=== PATIENT | male | born 1940 | race Two or more races ===

== ENCOUNTER 2024-07-20 23:33 | Inpatient (IN) | payer MEDICARE, OTHER ==
[~2024-07-20] VITALS: Ht 177.8 cm; Wt 77.1 kg
[2024-07-21 00:53] LABS: BASOPHILS % (AUTO) 0.2 % (0.0-2.0); EOSINOPHILS # (AUTO) 0.1 K/uL (0.0-0.7); EOSINOPHILS % (AUTO) 0.6 % (0.0-6.0); HEMATOCRIT 34 % (39-51); HEMOGLOBIN 11.4 g/dL (13.5-17.5); LYMPHOCYTES # (AUTO) 1.1 K/uL (0.8-4.8); LYMPHOCYTES % (AUTO) 11.6 % (20.0-44.0); MEAN CORPUSCULAR HEMOGLOBIN 29 PG (26.0-33.0); MEAN CORPUSCULAR HGB CONC 34 g/dl (31.0-36.0); MEAN CORPUSCULAR VOLUME 87 fL (80-96); MONOCYTES % (AUTO) 10.2 % (2.0-12.0); NEUTROPHILS # (AUTO) 7.6 K/uL (1.8-8.9); NEUTROPHILS % (AUTO) 77.4 % (43.0-81.0); PLATELET COUNT (AUTO) 237 K/uL (150-450); RED BLOOD CELL COUNT(AUTO) 3.88 MIL/uL (4.5-6.0); WHITE BLOOD COUNT (AUTO) 9.9 K/uL (4.3-11.0)
[2024-07-21 01:01] LABS: CALCIUM, SERUM 8.8 mg/dL (8.5-10.1); CARBON DIOXIDE 27 mmol/L (21-32); CHLORIDE 105 mmol/L (98-107); CREATININE 0.8 mg/dL (0.6-1.3); GLUCOSE 98 mg/dL (74-106); POTASSIUM 4.3 mmol/L (3.5-5.1); SODIUM SERUM 139 mmol/L (136-145); UREA NITROGEN, BLOOD 19 mg/dL (7-18)
[2024-07-21 01:07] LABS: ALANINE AMINOTRANSFERASE 24 U/L (12-78); ALBUMIN 3.6 g/dL (3.4-5.0); ALKALINE PHOSPHATASE 80 U/L (46-116); ASPARTATE AMINOTRANSFERASE 19 U/L (15-37); BILIRUBIN,TOTAL 0.3 mg/dL (0.2-1.0); TOTAL PROTEIN, SERUM 6.7 g/dL (6.4-8.2)
[2024-07-21] MEDS ORDERED: methylPREDNISolone SOD SUCC 125 MG/2ML VIAL ONE (05:25)
[2024-07-21] MEDS: methylPREDNISolone SOD SUCC 125 MG/2ML VIAL IV ONE (05:33)
[2024-07-21 05:59] VITALS: O2SAT 99
[2024-07-21] MEDS: ALBUTEROL FS 2.5 MG/3 ML VIAL.NEB NEB ONE (05:59)
[2024-07-21] MEDS ORDERED: ALBUTEROL FS 2.5 MG/3 ML VIAL.NEB ONE (06:03)
[2024-07-21] MEDS ORDERED: CEFTRIAXONE 1GM BAG (ER ONLY) 50 ML IV ONE (06:06)
[2024-07-21] MEDS: CEFTRIAXONE 1 G in IV D5W 50 ML IV ONE (06:10)
[2024-07-21 06:14] VITALS: O2SAT 99
[2024-07-21] MEDS ORDERED: ONDANSETRON HCL/PF 4 MG/2 ML VIAL IVP PRN (06:30)
[2024-07-21] MEDS ORDERED: Z GUARD REMEDY 4 OZ OINT TP PRN (06:30)
[2024-07-21] MEDS ORDERED: MAG HYDROX/AL HYDROX/SIMETH 30 ML UDC PO PRN (06:30)
[2024-07-21] MEDS ORDERED: MAGNESIUM HYDROXIDE 30 ML UDC PO PRN (06:30)
[2024-07-21 06:31] LABS: BASOPHILS % (AUTO) 0.1 % (0.0-2.0); EOSINOPHILS # (AUTO) 0.1 K/uL (0.0-0.7); EOSINOPHILS % (AUTO) 0.6 % (0.0-6.0); HEMATOCRIT 35 % (39-51); HEMOGLOBIN 11.8 g/dL (13.5-17.5); LYMPHOCYTES # (AUTO) 1.1 K/uL (0.8-4.8); LYMPHOCYTES % (AUTO) 10.3 % (20.0-44.0); MEAN CORPUSCULAR HEMOGLOBIN 30 PG (26.0-33.0); MEAN CORPUSCULAR HGB CONC 34 g/dl (31.0-36.0); MEAN CORPUSCULAR VOLUME 88 fL (80-96); MONOCYTES # (AUTO) 1.1 K/uL (0.1-1.30); MONOCYTES % (AUTO) 9.9 % (2.0-12.0); NEUTROPHILS # (AUTO) 8.4 K/uL (1.8-8.9); NEUTROPHILS % (AUTO) 79.1 % (43.0-81.0); PLATELET COUNT (AUTO) 244 K/uL (150-450); RED BLOOD CELL COUNT(AUTO) 3.97 MIL/uL (4.5-6.0); RED CELL DISTRIBUTION WIDTH 15.7 % (11.5-15.0); WHITE BLOOD COUNT (AUTO) 10.7 K/uL (4.3-11.0)
[2024-07-21 06:53] LABS: ABG OXYGEN SATURATION 92.4 % (94.0-98.0); ABG PCO2 39.9 mmHg (35.0-48.0); ABG PH 7.437 (7.350-7.450); ABG PO2 65.2 mmHg (83.0-108.0); ABG TOTAL HEMOGLOBIN 12.9 G/dL (13.5-17.5); COHb 0.3 % (0.5-1.5); MetHb 0.4 % (0.0-1.5); O2Hb 91.8 % (94.0-97.0); SITE, ABG RIGHT BRACHIAL
[2024-07-21 06:58] LABS: CALCIUM, SERUM 9.1 mg/dL (8.5-10.1); CARBON DIOXIDE 33 mmol/L (21-32); CHLORIDE 105 mmol/L (98-107); CREATININE 0.8 mg/dL (0.6-1.3); GLUCOSE 102 mg/dL (74-106); MAGNESIUM 1.9 mg/dL (1.8-2.4); NT-PRO BNP 379 pg/mL (0-125); PHOSPHORUS 3.8 mg/dL (2.5-4.9); POTASSIUM 4.7 mmol/L (3.5-5.1); SODIUM SERUM 141 mmol/L (136-145); UREA NITROGEN, BLOOD 18 mg/dL (7-18)
[2024-07-21] MEDS ORDERED: TRAM50TA2 PO (07:59)
[2024-07-21] MEDS ORDERED: MAGN400O6 PO (07:59)
[2024-07-21] MEDS ORDERED: ASCO500T10 PO (07:59)
[2024-07-21] MEDS ORDERED: BUDE10.2 IH (07:59)
[2024-07-21] MEDS ORDERED: DOCU100T2 PO (07:59)
[2024-07-21] MEDS ORDERED: ALBU2.5V38 IH (07:59)
[2024-07-21] MEDS ORDERED: SENN-18 PO (07:59)
[2024-07-21] MEDS ORDERED: TIOT18CA3 IH (07:59)
[2024-07-21] MEDS ORDERED: NA P133E RC (07:59)
[2024-07-21] MEDS ORDERED: BISA10SU11 RC (07:59)
[2024-07-21] MEDS ORDERED: ASPI-1420 PO (07:59)
[2024-07-21] MEDS ORDERED: ACET-2030 PO (07:59)
[2024-07-21] MEDS ORDERED: CLON0.1T PO (07:59)
[2024-07-21] MEDS ORDERED: AMLO5TAB4 PO (07:59)
[2024-07-21] MEDS ORDERED: CHOL100062 PO (07:59)
[2024-07-21] MEDS ORDERED: POLY17PO4 PO (07:59)
[2024-07-21] MEDS ORDERED: MULT-594 PO (07:59)
[2024-07-21] MEDS ORDERED: ALBU18HF2 IH (07:59)
[2024-07-21 08:05] VITALS: BP 144/70; TEMP 97.7; O2SAT 95
[2024-07-21] MEDS: PANTOPRAZOLE 40 MG TABLET.DR PO SCH (08:20)
[2024-07-21] MEDS ORDERED: BISACODYL SUPP (10 MG) 10 MG/SUPP.RECT SUPP.RECT RC PRN (11:30)
[2024-07-21 12:00] VITALS: BP 141/66; TEMP 97.6; O2SAT 96
[2024-07-21] MEDS: methylPREDNISolone SOD SUCC 40 MG/ML VIAL IV SCH (12:40)
[2024-07-21 16:00] VITALS: BP 151/87; TEMP 98.1; O2SAT 96
[2024-07-21 20:00] VITALS: BP 123/84; TEMP 97.7; O2SAT 97
[2024-07-21] MEDS: SENNOSIDES 8.6 MG TABLET PO SCH (21:43)
[2024-07-22] VITALS: BP 165/94; TEMP 97.3; O2SAT 96
[2024-07-22 04:00] VITALS: BP 151/77; TEMP 97.8; O2SAT 98
[2024-07-22] MEDS: CEFTRIAXONE 1 G in IV D5W 50 ML IV SCH (05:05)
[2024-07-22 07:04] LABS: BASOPHILS % (AUTO) 0.1 % (0.0-2.0); HEMATOCRIT 38 % (39-51); HEMOGLOBIN 12.8 g/dL (13.5-17.5); LYMPHOCYTES # (AUTO) 0.6 K/uL (0.8-4.8); LYMPHOCYTES % (AUTO) 7.4 % (20.0-44.0); MEAN CORPUSCULAR HEMOGLOBIN 29 PG (26.0-33.0); MEAN CORPUSCULAR HGB CONC 34 g/dl (31.0-36.0); MEAN CORPUSCULAR VOLUME 86 fL (80-96); MONOCYTES # (AUTO) 0.5 K/uL (0.1-1.30); MONOCYTES % (AUTO) 5.8 % (2.0-12.0); NEUTROPHILS # (AUTO) 7.2 K/uL (1.8-8.9); NEUTROPHILS % (AUTO) 86.7 % (43.0-81.0); PLATELET COUNT (AUTO) 248 K/uL (150-450); RED BLOOD CELL COUNT(AUTO) 4.43 MIL/uL (4.5-6.0); RED CELL DISTRIBUTION WIDTH 15.6 % (11.5-15.0); WHITE BLOOD COUNT (AUTO) 8.3 K/uL (4.3-11.0)
[2024-07-22 08:00] VITALS: BP 132/71; TEMP 97.5; O2SAT 98
[2024-07-22 08:02] LABS: CALCIUM, SERUM 9.4 mg/dL (8.5-10.1); CARBON DIOXIDE 25 mmol/L (21-32); CHLORIDE 102 mmol/L (98-107); CREATININE 0.6 mg/dL (0.6-1.3); GLUCOSE 131 mg/dL (74-106); POTASSIUM 4.1 mmol/L (3.5-5.1); SODIUM SERUM 137 mmol/L (136-145); UREA NITROGEN, BLOOD 16 mg/dL (7-18)
[2024-07-22] MEDS: ASPIRIN EC 81 MG TABLET.DR PO SCH (08:11)
[2024-07-22] MEDS: ASCORBIC ACID 500 MG TABLET PO SCH (08:11)
[2024-07-22] MEDS: AMLODIPINE BESYLATE 5 MG TABLET PO SCH (08:11)
[2024-07-22] MEDS: ACETAMINOPHEN 325 MG TABLET PO PRN (08:26)
[2024-07-22 12:00] VITALS: BP 124/63; TEMP 97.8; O2SAT 98
[2024-07-22 16:00] VITALS: BP 133/72; TEMP 97.8; O2SAT 98
[2024-07-22 20:00] VITALS: BP 141/75; TEMP 98.5; O2SAT 100
[2024-07-23] VITALS (8 sets, daily range): BP systolic 124–143; BP diastolic 56–82; TEMP 97.3–98.7; O2SAT 96–100
[2024-07-24] VITALS (8 sets, daily range): BP systolic 137–151; BP diastolic 64–77; TEMP 97.5–98.1; O2SAT 94–99
[2024-07-24] MEDS: ALBUTEROL FS 2.5 MG/3 ML VIAL.NEB NEB PRN (04:19)
[2024-07-24] MEDS ORDERED: AMOX-430 PO (09:50)
== END 2024-07-24 13:40 | DRG 191 ==
LOC: ER 23:56 → TELE1 07-21 07:25
PROVIDERS: ADMIT Internal Medicine; ATTEND Internal Medicine
DX: J44.1 Chronic obstructive pulmonary disease with (acute) exacerbation (principal); I50.32 Chronic diastolic (congestive) heart failure; S40.022A Contusion of left upper arm, initial encounter; W19.XXXA Unspecified fall, initial encounter; Y92.129 Unspecified place in nursing home as the place of occurrence of the external cause; I11.0 Hypertensive heart disease with heart failure; M19.90 Unspecified osteoarthritis, unspecified site; D63.8 Anemia in other chronic diseases classified elsewhere; Z87.891 Personal history of nicotine dependence
CPT/HCPCS: 36415; 70450-TC; 71045-TC; 73110; 73130-TC; 80048-TC; 80053-TC; 83735-TC; 83880; 84100-TC; 84484-TC; 85025-TC; 87040-TC; 94760-TC; 94762-TC; 94799-TC; 97112-TC; 97116-TC; 97530-TC; A4223; G0378; J0696; J2919; J7050; J7060

== ENCOUNTER 2024-08-31 09:15 | Inpatient (IN) | payer MEDICARE, OTHER ==
[~2024-08-31] VITALS: Ht 177.8 cm; Wt 61.2 kg
[~2024-08-31 09:15] MED LIST: ACET-2030 PO; ALBU18HF2 IH; ALBU2.5V38 IH; AMLO5TAB4 PO; AMOX-430 PO; ASCO500T10 PO; ASPI-1420 PO; BISA10SU11 RC; BUDE10.2 IH; CHOL100062 PO; CLON0.1T PO; DOCU100T2 PO; MAGN400O6 PO; MULT-594 PO; NA P133E RC; POLY17PO4 PO; SENN-18 PO; TIOT18CA3 IH; TRAM50TA2 PO
[2024-08-31] MEDS ORDERED: methylPREDNISolone SOD SUCC 125 MG/2ML VIAL ONE (09:28)
[2024-08-31] MEDS ORDERED: Magnesium 1GM/D5W 100ML PREMIX 200 ML IV ONE (09:28)
[2024-08-31] MEDS ORDERED: IPRATROPIUM NEB FS 0.5 MG/2.5 ML AMPUL.NEB ONE (09:38)
[2024-08-31] MEDS ORDERED: ALBUTEROL FS 2.5 MG/3 ML VIAL.NEB ONE (09:38)
[2024-08-31] MEDS ORDERED: FLUT1DIS3 IH (09:44)
[2024-08-31] MEDS ORDERED: ACET-868 PO (09:44)
[2024-08-31] MEDS: methylPREDNISolone SOD SUCC 125 MG/2ML VIAL IV ONE (09:47)
[2024-08-31] MEDS: Magnesium 1GM/D5W 100ML PREMIX 200 ML IV ONE (09:47)
[2024-08-31] MEDS: ALBUTEROL FS 2.5 MG/3 ML VIAL.NEB CONTNEB ONE (09:55)
[2024-08-31] MEDS: IPRATROPIUM NEB FS 0.5 MG/2.5 ML AMPUL.NEB NEB ONE (09:55)
[2024-08-31 09:56] VITALS: O2SAT 96
[2024-08-31 10:00] LABS: CALCIUM, SERUM 9.3 mg/dL (8.5-10.1); CARBON DIOXIDE 32 mmol/L (21-32); CHLORIDE 101 mmol/L (98-107); CREATININE 0.9 mg/dL (0.6-1.3); GLUCOSE 94 mg/dL (74-106); POTASSIUM 4.7 mmol/L (3.5-5.1); SODIUM SERUM 137 mmol/L (136-145); UREA NITROGEN, BLOOD 13 mg/dL (7-18)
[2024-08-31 10:08] LABS: BASOPHILS % (AUTO) 0.2 % (0.0-2.0); EOSINOPHILS # (AUTO) 0.1 K/uL (0.0-0.7); EOSINOPHILS % (AUTO) 1.1 % (0.0-6.0); HEMATOCRIT 40 % (39-51); HEMOGLOBIN 13.3 g/dL (13.5-17.5); LYMPHOCYTES # (AUTO) 1.5 K/uL (0.8-4.8); LYMPHOCYTES % (AUTO) 23.1 % (20.0-44.0); MEAN CORPUSCULAR HEMOGLOBIN 29 PG (26.0-33.0); MEAN CORPUSCULAR HGB CONC 33 g/dl (31.0-36.0); MEAN CORPUSCULAR VOLUME 88 fL (80-96); MONOCYTES # (AUTO) 0.7 K/uL (0.1-1.30); MONOCYTES % (AUTO) 10.4 % (2.0-12.0); NEUTROPHILS # (AUTO) 4.2 K/uL (1.8-8.9); NEUTROPHILS % (AUTO) 65.2 % (43.0-81.0); PLATELET COUNT (AUTO) 258 K/uL (150-450); RED BLOOD CELL COUNT(AUTO) 4.53 MIL/uL (4.5-6.0); RED CELL DISTRIBUTION WIDTH 14.7 % (11.5-15.0); WHITE BLOOD COUNT (AUTO) 6.4 K/uL (4.3-11.0)
[2024-08-31 10:17] LABS: ALANINE AMINOTRANSFERASE 19 U/L (12-78); ALKALINE PHOSPHATASE 76 U/L (46-116); ASPARTATE AMINOTRANSFERASE 20 U/L (15-37); BILIRUBIN,DIRECT 0.1 mg/dL (0.0-0.2); BILIRUBIN,TOTAL 0.4 mg/dL (0.2-1.0); NT-PRO BNP 227 pg/mL (0-125); TOTAL PROTEIN, SERUM 7.2 g/dL (6.4-8.2)
[2024-08-31 10:29] VITALS: O2SAT 100
[2024-08-31] MEDS ORDERED: MAGNESIUM HYDROXIDE 30 ML UDC PO PRN ×2 (11:00)
[2024-08-31] MEDS ORDERED: MAG HYDROX/AL HYDROX/SIMETH 30 ML UDC PO PRN (11:00)
[2024-08-31] MEDS ORDERED: Z GUARD REMEDY 4 OZ OINT TP PRN (11:00)
[2024-08-31] MEDS ORDERED: ONDANSETRON HCL/PF 4 MG/2 ML VIAL IVP PRN (11:00)
[2024-08-31 12:30] VITALS: BP 113/59; TEMP 97.3; O2SAT 95
[2024-08-31] MEDS: methylPREDNISolone SOD SUCC 125 MG/2ML VIAL IV SCH (14:50)
[2024-08-31] MEDS: ACETAMINOPHEN 325 MG TABLET PO PRN (14:51)
[2024-08-31] MEDS: FLUTICASONE/VILANTEROL 1 EACH BLST.W.DEV IH SCH (14:51)
[2024-08-31 16:00] VITALS: BP 140/74; TEMP 97.3; O2SAT 95
[2024-08-31] MEDS: DOCUSATE SODIUM 100 MG CAPSULE PO SCH (16:38)
[2024-08-31] MEDS ORDERED: Medication Not On Formulary EA (Budesonide/Formoterol Fumarate (Symbicort 160-4.5 Mcg In IH SCH (17:00)
[2024-08-31] MEDS: LEVOFLOXACIN 500 MG /D5W 100ML 500 MG in PREMIX 1 EA IV SCH (18:34)
[2024-08-31 20:15] VITALS: BP_SYST 101; BP_SYST 123; BP_DIAS 69; BP_DIAS 72; TEMP 97.5; TEMP 98.1; O2SAT 91; O2SAT 95
[2024-08-31] MEDS: TRAMADOL HCL 50 MG TABLET PO PRN (21:39)
[2024-08-31] MEDS: ENOXAPARIN SODIUM 40 MG/0.4 ML DISP.SYRIN SQ SCH (21:55)
[2024-09-01] VITALS (14 sets, daily range): BP systolic 129–159; BP diastolic 65–80; TEMP 97.5–98.2; O2SAT 95–99
[2024-09-01] MEDS: ALBUTEROL FS 2.5 MG/0.5 ML VIAL.NEB NEB PRN (02:27)
[2024-09-01] MEDS: IPRATROPIUM NEB FS 0.5 MG/2.5 ML AMPUL.NEB NEB PRN (02:27)
[2024-09-01 07:05] LABS: HEMATOCRIT 37 % (39-51); HEMOGLOBIN 12.6 g/dL (13.5-17.5); LYMPHOCYTES # (AUTO) 0.7 K/uL (0.8-4.8); LYMPHOCYTES % (AUTO) 7.1 % (20.0-44.0); MEAN CORPUSCULAR HEMOGLOBIN 30 PG (26.0-33.0); MEAN CORPUSCULAR HGB CONC 34 g/dl (31.0-36.0); MEAN CORPUSCULAR VOLUME 88 fL (80-96); MONOCYTES # (AUTO) 0.3 K/uL (0.1-1.30); MONOCYTES % (AUTO) 3.4 % (2.0-12.0); NEUTROPHILS # (AUTO) 8.4 K/uL (1.8-8.9); NEUTROPHILS % (AUTO) 89.5 % (43.0-81.0); PLATELET COUNT (AUTO) 236 K/uL (150-450); RED BLOOD CELL COUNT(AUTO) 4.26 MIL/uL (4.5-6.0); RED CELL DISTRIBUTION WIDTH 14.8 % (11.5-15.0); WHITE BLOOD COUNT (AUTO) 9.4 K/uL (4.3-11.0)
[2024-09-01 07:28] LABS: CALCIUM, SERUM 9.3 mg/dL (8.5-10.1); CARBON DIOXIDE 28 mmol/L (21-32); CHLORIDE 102 mmol/L (98-107); CREATININE 0.8 mg/dL (0.6-1.3); GLUCOSE 139 mg/dL (74-106); MAGNESIUM 1.9 mg/dL (1.8-2.4); PHOSPHORUS 3.6 mg/dL (2.5-4.9); POTASSIUM 4.9 mmol/L (3.5-5.1); SODIUM SERUM 138 mmol/L (136-145); UREA NITROGEN, BLOOD 17 mg/dL (7-18)
[2024-09-01] MEDS: CHOLECALCIFEROL 1,000 UNIT TABLET (VIT D3) PO SCH (08:31)
[2024-09-01] MEDS: POLYETHYLENE GLYCOL 3350 17 GM POWD.PACK PO SCH (08:31)
[2024-09-01] MEDS: ASPIRIN EC 81 MG TABLET.DR PO SCH (08:31)
[2024-09-01] MEDS: ASCORBIC ACID 500 MG TABLET PO SCH (08:31)
[2024-09-01] MEDS: AMLODIPINE BESYLATE 5 MG TABLET PO SCH (08:32)
[2024-09-01] MEDS: IPRATROPIUM NEB FS 0.5 MG/2.5 ML AMPUL.NEB NEB SCH (09:00)
[2024-09-01] MEDS: ALBUTEROL FS 2.5 MG/0.5 ML VIAL.NEB NEB SCH (09:00)
[2024-09-01] MEDS: methylPREDNISolone SOD SUCC 125 MG/2ML VIAL IV ONE (16:43)
[2024-09-02] VITALS (9 sets, daily range): BP systolic 121–149; BP diastolic 62–78; TEMP 97.9–98; O2SAT 94–98
[2024-09-02 07:18] LABS: BASOPHILS % (AUTO) 0.2 % (0.0-2.0); HEMATOCRIT 39 % (39-51); LYMPHOCYTES # (AUTO) 0.8 K/uL (0.8-4.8); LYMPHOCYTES % (AUTO) 6.5 % (20.0-44.0); MEAN CORPUSCULAR HEMOGLOBIN 30 PG (26.0-33.0); MEAN CORPUSCULAR HGB CONC 33 g/dl (31.0-36.0); MEAN CORPUSCULAR VOLUME 89 fL (80-96); MONOCYTES % (AUTO) 8.1 % (2.0-12.0); NEUTROPHILS # (AUTO) 10.1 K/uL (1.8-8.9); NEUTROPHILS % (AUTO) 85.2 % (43.0-81.0); PLATELET COUNT (AUTO) 242 K/uL (150-450); RED BLOOD CELL COUNT(AUTO) 4.38 MIL/uL (4.5-6.0); RED CELL DISTRIBUTION WIDTH 15.1 % (11.5-15.0); WHITE BLOOD COUNT (AUTO) 11.9 K/uL (4.3-11.0)
[2024-09-02 07:36] LABS: CALCIUM, SERUM 9.5 mg/dL (8.5-10.1); CARBON DIOXIDE 29 mmol/L (21-32); CHLORIDE 102 mmol/L (98-107); CREATININE 0.8 mg/dL (0.6-1.3); GLUCOSE 109 mg/dL (74-106); POTASSIUM 4.9 mmol/L (3.5-5.1); SODIUM SERUM 137 mmol/L (136-145); UREA NITROGEN, BLOOD 22 mg/dL (7-18)
[2024-09-02 08:35] LABS: NT-PRO BNP 821 pg/mL (0-125)
[2024-09-02] MEDS ORDERED: FLUT1BLS6 IH (12:02)
[2024-09-02] MEDS: methylPREDNISolone SOD SUCC 125 MG/2ML VIAL IV SCH (12:06)
[2024-09-02] MEDS ORDERED: LEVO500T90 PO (12:58)
[2024-09-02] MEDS ORDERED: METH4TAB3 PO (12:58)
== END 2024-09-02 17:11 | DRG 192 ==
LOC: ER 09:19 → TELE1 11:21
DX: J44.1 Chronic obstructive pulmonary disease with (acute) exacerbation (principal); M81.0 Age-related osteoporosis without current pathological fracture; R29.6 Repeated falls; I10 Essential (primary) hypertension; Z79.51 Long term (current) use of inhaled steroids; Z79.899 Other long term (current) drug therapy; Z20.822 Contact with and (suspected) exposure to COVID-19; R26.9 Unspecified abnormalities of gait and mobility; Z79.82 Long term (current) use of aspirin; Z87.891 Personal history of nicotine dependence
CPT/HCPCS: 36415; 71045-TC; 80048-TC; 80076-TC; 83735-TC; 83880; 84100-TC; 84484-TC; 85025-TC; 87081-TC; 94799-TC; 97112-TC; 97116-TC; 97530-TC; A4216; A4223; G0378; J1650; J1956; J2919; J3475; J7050

== ENCOUNTER 2024-09-06 09:49 | Inpatient (IN) | payer MEDICARE, OTHER ==
[~2024-09-06] VITALS: Ht 182.9 cm; Wt 64.5 kg
[2024-09-06] VITALS (11 sets, daily range): BP systolic 109–150; BP diastolic 52–67; TEMP 97.7–98; O2SAT 94–100
[~2024-09-06 09:49] MED LIST changes: -ACET-2030 PO; +ACET-868 PO; -AMOX-430 PO; -BISA10SU11 RC; -BUDE10.2 IH; -CLON0.1T PO; +FLUT1BLS6 IH; +LEVO500T90 PO; +METH4TAB3 PO; -MULT-594 PO; -NA P133E RC; -SENN-18 PO; -TIOT18CA3 IH
[2024-09-06] MEDS: methylPREDNISolone SOD SUCC 125 MG/2ML VIAL IV ONE (10:00)
[2024-09-06] MEDS ORDERED: methylPREDNISolone SOD SUCC 125 MG/2ML VIAL ONE (10:01)
[2024-09-06] MEDS ORDERED: ALBUTEROL FS 2.5 MG/3 ML VIAL.NEB ONE (10:02)
[2024-09-06] MEDS ORDERED: IPRATROPIUM NEB FS 0.5 MG/2.5 ML AMPUL.NEB ONE (10:02)
[2024-09-06] MEDS: ALBUTEROL FS 2.5 MG/3 ML VIAL.NEB NEB ONE (10:07)
[2024-09-06] MEDS: IPRATROPIUM NEB FS 0.5 MG/2.5 ML AMPUL.NEB NEB ONE (10:07)
[2024-09-06 10:19] LABS: BASOPHILS % (AUTO) 0.2 % (0.0-2.0); EOSINOPHILS # (AUTO) 0.1 K/uL (0.0-0.7); HEMATOCRIT 42 % (39-51); HEMOGLOBIN 13.8 g/dL (13.5-17.5); LYMPHOCYTES # (AUTO) 1.9 K/uL (0.8-4.8); LYMPHOCYTES % (AUTO) 15.9 % (20.0-44.0); MEAN CORPUSCULAR HEMOGLOBIN 29 PG (26.0-33.0); MEAN CORPUSCULAR HGB CONC 33 g/dl (31.0-36.0); MEAN CORPUSCULAR VOLUME 89 fL (80-96); MONOCYTES # (AUTO) 0.9 K/uL (0.1-1.30); MONOCYTES % (AUTO) 7.9 % (2.0-12.0); NEUTROPHILS # (AUTO) 8.8 K/uL (1.8-8.9); PLATELET COUNT (AUTO) 288 K/uL (150-450); RED BLOOD CELL COUNT(AUTO) 4.71 MIL/uL (4.5-6.0); WHITE BLOOD COUNT (AUTO) 11.7 K/uL (4.3-11.0)
[2024-09-06 10:27] LABS: CARBON DIOXIDE 31 mmol/L (21-32); CHLORIDE 102 mmol/L (98-107); CREATININE 0.7 mg/dL (0.6-1.3); GLUCOSE 83 mg/dL (74-106); POTASSIUM 4.5 mmol/L (3.5-5.1); SODIUM SERUM 139 mmol/L (136-145); UREA NITROGEN, BLOOD 19 mg/dL (7-18)
[2024-09-06 10:32] LABS: ALANINE AMINOTRANSFERASE 15 U/L (12-78); ALBUMIN 3.9 g/dL (3.4-5.0); ALKALINE PHOSPHATASE 79 U/L (46-116); ASPARTATE AMINOTRANSFERASE 12 U/L (15-37); BILIRUBIN,DIRECT 0.1 mg/dL (0.0-0.2); BILIRUBIN,TOTAL 0.6 mg/dL (0.2-1.0); TOTAL PROTEIN, SERUM 7.1 g/dL (6.4-8.2)
[2024-09-06 10:37] LABS: LACTIC ACID 1.7 mmol/L (0.4-2.0)
[2024-09-06] MEDS ORDERED: FLUT1DIS3 IH (11:04)
[2024-09-06] MEDS ORDERED: BREZTRI IH (11:04)
[2024-09-06 12:17] LABS: ABG BASE EXCESS 0.2 mmol/L (-2.0-3.0); ABG OXYGEN SATURATION 98.7 % (94.0-98.0); ABG PCO2 48.4 mmHg (35.0-48.0); ABG PH 7.354 (7.350-7.450); ABG PO2 144.7 mmHg (83.0-108.0); ABG TOTAL HEMOGLOBIN 14.7 G/dL (13.5-17.5); COHb 0.2 % (0.5-1.5); MetHb 0.4 % (0.0-1.5); O2Hb 98.1 % (94.0-97.0); SITE, ABG RIGHT BRACHIAL
[2024-09-06] MEDS ORDERED: ALBUTEROL FS 2.5 MG/0.5 ML VIAL.NEB NEB PRN (12:30)
[2024-09-06] MEDS ORDERED: ONDANSETRON HCL/PF 4 MG/2 ML VIAL IVP PRN (12:30)
[2024-09-06] MEDS ORDERED: Z GUARD REMEDY 4 OZ OINT TP PRN (12:30)
[2024-09-06] MEDS ORDERED: IPRATROPIUM NEB FS 0.5 MG/2.5 ML AMPUL.NEB NEB PRN (12:30)
[2024-09-06] MEDS: methylPREDNISolone SOD SUCC 125 MG/2ML VIAL IV SCH (17:14)
[2024-09-06] MEDS: IV NS 0.9% 1,000 ML IV PRN (17:37)
[2024-09-06] MEDS: ALBUTEROL FS 2.5 MG/0.5 ML VIAL.NEB NEB SCH (19:38)
[2024-09-06] MEDS: IPRATROPIUM NEB FS 0.5 MG/2.5 ML AMPUL.NEB NEB SCH (19:38)
[2024-09-07] VITALS (22 sets, daily range): BP systolic 119–160; BP diastolic 58–87; TEMP 97.5–98.9; O2SAT 97–100
[2024-09-07] MEDS: PANTOPRAZOLE 40 MG VIAL IV SCH (08:08)
[2024-09-07 10:20] LABS: HEMATOCRIT 37 % (39-51); HEMOGLOBIN 12.4 g/dL (13.5-17.5); LYMPHOCYTES # (AUTO) 0.5 K/uL (0.8-4.8); LYMPHOCYTES % (AUTO) 5.5 % (20.0-44.0); MEAN CORPUSCULAR HEMOGLOBIN 30 PG (26.0-33.0); MEAN CORPUSCULAR HGB CONC 34 g/dl (31.0-36.0); MEAN CORPUSCULAR VOLUME 88 fL (80-96); MONOCYTES # (AUTO) 0.3 K/uL (0.1-1.30); MONOCYTES % (AUTO) 3.1 % (2.0-12.0); NEUTROPHILS # (AUTO) 8.8 K/uL (1.8-8.9); NEUTROPHILS % (AUTO) 91.4 % (43.0-81.0); PLATELET COUNT (AUTO) 252 K/uL (150-450); RED BLOOD CELL COUNT(AUTO) 4.17 MIL/uL (4.5-6.0); RED CELL DISTRIBUTION WIDTH 14.6 % (11.5-15.0); WHITE BLOOD COUNT (AUTO) 9.6 K/uL (4.3-11.0)
[2024-09-07 10:50] LABS: CALCIUM, SERUM 8.7 mg/dL (8.5-10.1); CARBON DIOXIDE 26 mmol/L (21-32); CHLORIDE 104 mmol/L (98-107); CREATININE 0.9 mg/dL (0.6-1.3); GLUCOSE 117 mg/dL (74-106); MAGNESIUM 1.8 mg/dL (1.8-2.4); PHOSPHORUS 3.6 mg/dL (2.5-4.9); POTASSIUM 3.8 mmol/L (3.5-5.1); SODIUM SERUM 142 mmol/L (136-145); UREA NITROGEN, BLOOD 23 mg/dL (7-18)
[2024-09-07] MEDS: LEVOFLOXACIN 750 MG /D5W 150ML 750 MG in PREMIX 1 EA IV SCH (11:44)
[2024-09-07] MEDS: ENOXAPARIN SODIUM 40 MG/0.4 ML DISP.SYRIN SQ SCH (11:45)
[2024-09-08] VITALS (13 sets, daily range): BP systolic 126–172; BP diastolic 70–87; TEMP 97.5–98.1; O2SAT 95–99
[2024-09-08] MEDS: hydrALAZINE HCL IV 20 MG VIAL IV PRN (04:17)
[2024-09-08] MEDS: APIXABAN 5 MG TABLET PO SCH (08:28)
[2024-09-08] MEDS: VALSARTAN 80 MG TABLET PO SCH (08:28)
[2024-09-08] MEDS ORDERED: PANTOPRAZOLE 40 MG/PACK PACK NG SCH (09:00)
[2024-09-09] VITALS (7 sets, daily range): BP systolic 147–150; BP diastolic 79–81; TEMP 97.7; O2SAT 95–100
[2024-09-09] MEDS: PANTOPRAZOLE 40 MG TABLET.DR PO SCH (08:41)
[2024-09-09] MEDS: AMLODIPINE BESYLATE 5 MG TABLET PO SCH (08:42)
[2024-09-09] MEDS: LEVOFLOXACIN (250MG) 250 MG TABLET PO SCH (11:40)
[2024-09-09] MEDS ORDERED: methylPREDNISolone SOD SUCC 125 MG/2ML VIAL IV SCH (12:30)
[2024-09-09] MEDS ORDERED: methylPREDNISolone SOD SUCC 40 MG/ML VIAL IV SCH (12:30)
[2024-09-09] MEDS: APIXABAN 5 MG TABLET PO SCH (16:49)
[2024-09-10] MEDS ORDERED: methylPREDNISolone SOD SUCC 40 MG/ML VIAL IV SCH (09:00)
== END 2024-09-09 18:05 | DRG 190 ==
LOC: ER 09:51 → TELE 11:42 → ICU 15:03 → TELE1 09-07 06:48 → MEDSG1 09-08 09:44
PROC: 5A09357 Assistance with Respiratory Ventilation, Less than 24 Consecutive Hours, Continuous Positive Airway Pressure (ICD-10-PCS; principal; 2024-09-06)
DX: J44.1 Chronic obstructive pulmonary disease with (acute) exacerbation (principal); J96.21 Acute and chronic respiratory failure with hypoxia; J96.22 Acute and chronic respiratory failure with hypercapnia; I82.402 Acute embolism and thrombosis of unspecified deep veins of left lower extremity; M81.0 Age-related osteoporosis without current pathological fracture; Z20.822 Contact with and (suspected) exposure to COVID-19; I10 Essential (primary) hypertension; R29.6 Repeated falls; R26.9 Unspecified abnormalities of gait and mobility; Z87.81 Personal history of (healed) traumatic fracture; Z79.51 Long term (current) use of inhaled steroids; Z79.82 Long term (current) use of aspirin; Z79.899 Other long term (current) drug therapy; Z87.891 Personal history of nicotine dependence
CPT/HCPCS: 36415; 36600; 71045-TC; 80048-TC; 80076-TC; 82803-TC; 83605-TC; 83735-TC; 84100-TC; 84484-TC; 85025-TC; 87040-TC; 87081-TC; 93307-TC; 93970-TC; 94762-TC; 94799-TC; 97110-TC; 97116-TC; 97530-TC; 99082-TC; A4216; A4223; G0378; J0360; J1650; J1956; J2470; J2919; J7030

== ENCOUNTER 2024-09-24 16:09 | Inpatient (IN) | payer OTHER, MEDICARE ==
[~2024-09-24] VITALS: Ht 177.8 cm; Wt 63.5 kg
[~2024-09-24 16:09] MED LIST changes: +BREZTRI IH; +FLUT1DIS3 IH
[2024-09-24] MEDS ORDERED: methylPREDNISolone SOD SUCC 125 MG/2ML VIAL ONE (16:34)
[2024-09-24] MEDS: IV NS 0.9% 1,000 ML BAG IV ONE (16:40)
[2024-09-24] MEDS: methylPREDNISolone SOD SUCC 125 MG/2ML VIAL IV ONE (16:40)
[2024-09-24] MEDS ORDERED: IPRATROPIUM NEB FS 0.5 MG/2.5 ML AMPUL.NEB ONE ×2 (16:52→18:03)
[2024-09-24] MEDS ORDERED: ALBUTEROL FS 2.5 MG/3 ML VIAL.NEB ONE ×2 (16:52→18:03)
[2024-09-24] MEDS: IPRATROPIUM NEB FS 0.5 MG/2.5 ML AMPUL.NEB NEB ONE ×2 (17:00→18:04)
[2024-09-24] MEDS: ALBUTEROL FS 2.5 MG/3 ML VIAL.NEB NEB ONE ×2 (17:00→18:04)
[2024-09-24] MEDS: CEFEPIME 1 GM in IV D5W 50 ML IV ONE (17:00)
[2024-09-24 17:01] VITALS: O2SAT 97
[2024-09-24 17:06] LABS: BASOPHILS % (AUTO) 0.3 % (0.0-2.0); EOSINOPHILS % (AUTO) 0.5 % (0.0-6.0); HEMATOCRIT 34 % (39-51); HEMOGLOBIN 11.6 g/dL (13.5-17.5); LYMPHOCYTES # (AUTO) 0.6 K/uL (0.8-4.8); MEAN CORPUSCULAR HEMOGLOBIN 30 PG (26.0-33.0); MEAN CORPUSCULAR HGB CONC 34 g/dl (31.0-36.0); MEAN CORPUSCULAR VOLUME 88 fL (80-96); MONOCYTES # (AUTO) 0.8 K/uL (0.1-1.30); MONOCYTES % (AUTO) 12.5 % (2.0-12.0); NEUTROPHILS # (AUTO) 5.1 K/uL (1.8-8.9); NEUTROPHILS % (AUTO) 77.7 % (43.0-81.0); PLATELET COUNT (AUTO) 181 K/uL (150-450); RED BLOOD CELL COUNT(AUTO) 3.88 MIL/uL (4.5-6.0); RED CELL DISTRIBUTION WIDTH 14.6 % (11.5-15.0); WHITE BLOOD COUNT (AUTO) 6.6 K/uL (4.3-11.0)
[2024-09-24] MEDS ORDERED: PANT40TA49 PO (17:06)
[2024-09-24] MEDS ORDERED: IPRA3AMP23 NEB (17:06)
[2024-09-24] MEDS ORDERED: VALS160T2 PO (17:06)
[2024-09-24] MEDS ORDERED: NA P133E RC (17:06)
[2024-09-24] MEDS ORDERED: MULT-213 PO (17:06)
[2024-09-24] MEDS ORDERED: ASPI-1169 PO (17:06)
[2024-09-24 17:13] VITALS: O2SAT 98
[2024-09-24 17:22] LABS: INR 1.03 (0.91-1.10); PARTIAL THROMBOPLASTIN TIME 31.7 SEC (24.3-34.3); PROTHROMBIN TIME 10.9 SECS (9.2-11.1)
[2024-09-24 17:39] LABS: CALCIUM, SERUM 8.9 mg/dL (8.5-10.1); CARBON DIOXIDE 28 mmol/L (21-32); CHLORIDE 100 mmol/L (98-107); CREATININE 1.2 mg/dL (0.6-1.3); GLUCOSE 116 mg/dL (74-106); LACTIC ACID 2.5 mmol/L (0.4-2.0); POTASSIUM 4.3 mmol/L (3.5-5.1); SODIUM SERUM 137 mmol/L (136-145); UREA NITROGEN, BLOOD 22 mg/dL (7-18)
[2024-09-24] MEDS: VANCOMYCIN 1 GM in IV D5W 250 ML IV ONE (17:45)
[2024-09-24 17:54] LABS: ALANINE AMINOTRANSFERASE 34 U/L (12-78); ALBUMIN 3.3 g/dL (3.4-5.0); ALKALINE PHOSPHATASE 77 U/L (46-116); ASPARTATE AMINOTRANSFERASE 27 U/L (15-37); BILIRUBIN,DIRECT 0.1 mg/dL (0.0-0.2); BILIRUBIN,TOTAL 0.3 mg/dL (0.2-1.0); NT-PRO BNP 427 pg/mL (0-125); TOTAL PROTEIN, SERUM 6.6 g/dL (6.4-8.2)
[2024-09-24 18:04] VITALS: O2SAT 98
[2024-09-24 18:07] LABS: APPEARANCE,URINE CLEAR (CLEAR); BILIRUBIN,URINE NEGATIVE (NEGATIVE); BLOOD, URINE 2+ Ery/uL (NEGATIVE); COLOR,URINE YELLOW (YELLOW); KETONES,URINE TRACE mg/dL (NEGATIVE); LEUKOCYTE ESTERASE ,URINE NEGATIVE (NEGATIVE); NITRITE, URINE NEGATIVE (NEGATIVE); PH,URINE 6.5 (5.0-8.0); PROTEIN,URINE TRACE mg/dl (NEGATIVE); UGLUCOSE NEGATIVE (NEGATIVE)
[2024-09-24 18:28] VITALS: O2SAT 97
[2024-09-24 18:29] LABS: ADD URINE CULTURE NO; BACTERIA,URINE Rare /HPF (None Seen); MUCUS,URINE Few /LPF (None Seen); RBC,URINE 81-100 /HPF (0-2); SQUAMOUS EPITHELIAL CELL,UR None Seen /HPF (None Seen); WBC,URINE 0-2 /HPF (0-3)
[2024-09-24] MEDS ORDERED: ALBUTEROL FS 2.5 MG/3 ML VIAL.NEB NEB PRN (18:30)
[2024-09-24] MEDS ORDERED: IOHEXOL-350 100 ML VIAL IV ONE (18:34)
[2024-09-24] MEDS ORDERED: IV NS 0.9% 250 ML IV ONE (18:34)
[2024-09-24 20:40] VITALS: BP 125/67; TEMP 98.1; O2SAT 95
[2024-09-24] MEDS ORDERED: IPRATROPIUM NEB FS 0.5 MG/2.5 ML AMPUL.NEB NEB PRN (22:00)
[2024-09-24] MEDS: methylPREDNISolone SOD SUCC 40 MG/ML VIAL IV SCH (23:14)
[2024-09-25] VITALS (10 sets, daily range): BP systolic 108–129; BP diastolic 60–74; TEMP 97.7–98.5; O2SAT 95–99
[2024-09-25] MEDS ORDERED: ONDANSETRON HCL/PF 4 MG/2 ML VIAL IVP PRN (09:00)
[2024-09-25] MEDS ORDERED: LOSARTAN POTASSIUM 50 MG TABLET PO SCH (09:00)
[2024-09-25] MEDS: AMLODIPINE BESYLATE 5 MG TABLET PO SCH (09:49)
[2024-09-25] MEDS: PANTOPRAZOLE 40 MG TABLET.DR PO SCH (09:49)
[2024-09-25] MEDS: POLYETHYLENE GLYCOL 3350 17 GM POWD.PACK PO SCH (09:49)
[2024-09-25] MEDS: DOCUSATE SODIUM 100 MG CAPSULE PO SCH (09:49)
[2024-09-25] MEDS: PROPRANOLOL HCL 40 MG TABLET PO SCH (09:49)
[2024-09-25] MEDS: ASPIRIN 81 MG TAB.CHEW PO SCH (09:49)
[2024-09-25] MEDS: ALBUTEROL FS 2.5 MG/3 ML VIAL.NEB NEB SCH (10:30)
[2024-09-25] MEDS: IPRATROPIUM NEB FS 0.5 MG/2.5 ML AMPUL.NEB NEB SCH (10:30)
[2024-09-25] MEDS: FLUTICASONE/VILANTEROL 1 EACH BLST.W.DEV IH SCH (11:23)
[2024-09-25] MEDS: LEVOFLOXACIN (250MG) 250 MG TABLET PO SCH (12:11)
[2024-09-25] MEDS: ENOXAPARIN SODIUM 40 MG/0.4 ML DISP.SYRIN SQ SCH (12:11)
[2024-09-26] VITALS (13 sets, daily range): BP systolic 122–151; BP diastolic 64–75; TEMP 97.2–98.4; O2SAT 95–99
[2024-09-26 07:10] LABS: HEMATOCRIT 36 % (39-51); HEMOGLOBIN 12.3 g/dL (13.5-17.5); LYMPHOCYTES # (AUTO) 0.6 K/uL (0.8-4.8); LYMPHOCYTES % (AUTO) 6.6 % (20.0-44.0); MEAN CORPUSCULAR HEMOGLOBIN 30 PG (26.0-33.0); MEAN CORPUSCULAR HGB CONC 35 g/dl (31.0-36.0); MEAN CORPUSCULAR VOLUME 86 fL (80-96); MONOCYTES # (AUTO) 0.5 K/uL (0.1-1.30); MONOCYTES % (AUTO) 4.7 % (2.0-12.0); NEUTROPHILS # (AUTO) 8.4 K/uL (1.8-8.9); NEUTROPHILS % (AUTO) 88.7 % (43.0-81.0); PLATELET COUNT (AUTO) 190 K/uL (150-450); RED BLOOD CELL COUNT(AUTO) 4.12 MIL/uL (4.5-6.0); RED CELL DISTRIBUTION WIDTH 14.4 % (11.5-15.0); WHITE BLOOD COUNT (AUTO) 9.5 K/uL (4.3-11.0)
[2024-09-26 07:35] LABS: CREATINE KINASE, TOTAL 48 U/L (39-308)
[2024-09-26 07:44] LABS: ALANINE AMINOTRANSFERASE 34 U/L (12-78); ALBUMIN 3.1 g/dL (3.4-5.0); ALKALINE PHOSPHATASE 79 U/L (46-116); ASPARTATE AMINOTRANSFERASE 27 U/L (15-37); CARBON DIOXIDE 31 mmol/L (21-32); CHLORIDE 103 mmol/L (98-107); CREATININE 0.8 mg/dL (0.6-1.3); GLUCOSE 124 mg/dL (74-106); PHOSPHORUS 3.6 mg/dL (2.5-4.9); POTASSIUM 4.6 mmol/L (3.5-5.1); SODIUM SERUM 138 mmol/L (136-145); TOTAL PROTEIN, SERUM 6.7 g/dL (6.4-8.2); UREA NITROGEN, BLOOD 22 mg/dL (7-18)
[2024-09-27] VITALS (8 sets, daily range): BP systolic 142–161; BP diastolic 69–77; TEMP 97.3–97.9; O2SAT 94–99
[2024-09-27 07:08] LABS: PTH, INTACT 19 pg/mL (15-65)
[2024-09-27] MEDS ORDERED: HYDROCODONE BIT/HOMATROPINE 5 ML UDC PO PRN (14:00)
[2024-09-27] MEDS: GUAIFENESIN/CODEINE 10 ML UDC PO PRN (14:20)
[2024-09-27] MEDS: ENSURE ENLIVE 237 ML LIQUID (VANILLA) PO SCH (17:00)
[2024-09-28] MEDS ORDERED: ALBUTEROL SULFATE 8 GM HFA.AER.AD IH PRN (01:30)
[2024-09-28 04:47] VITALS: BP 150/97; TEMP 97.5; O2SAT 98
[2024-09-28] MEDS ORDERED: ALBUTEROL FS 2.5 MG/0.5 ML VIAL.NEB NEB PRN (07:30)
[2024-09-28 08:08] LABS: *SPE ALBUMIN 3.1 g/dL (2.9-4.4); *SPE ALPHA-1-GLOBULIN 0.3 g/dL (0.0-0.4); *SPE ALPHA-2-GLOBULIN 0.9 g/dL (0.4-1.0); *SPE BETA GLOBULIN 0.9 g/dL (0.7-1.3); *SPE M-SPIKE Not Observed g/dL (Not Observed); *SPE PROTEIN TOTAL 6.1 g/dL (6.0-8.5); *SPEGAMMA GLOBULIN 0.8 g/dL (0.4-1.8)
[2024-09-28] MEDS: VALSARTAN 80 MG TABLET PO SCH (09:36)
[2024-09-28] MEDS: dexaMETHasone SOD PHOSPHATE 10 MG/ML VIAL IV SCH (09:41)
[2024-09-28 10:30] LABS: ABG BASE EXCESS 2.5 mmol/L (-2.0-3.0); ABG OXYGEN SATURATION 98.8 % (94.0-98.0); ABG PCO2 41.5 mmHg (35.0-48.0); ABG PH 7.432 (7.350-7.450); ABG PO2 156.8 mmHg (83.0-108.0); ABG TOTAL HEMOGLOBIN 13.3 G/dL (13.5-17.5); COHb 0.1 % (0.5-1.5); MetHb 0.1 % (0.0-1.5); O2Hb 98.6 % (94.0-97.0); SITE, ABG RIGHT BRACHIAL
[2024-09-28 16:00] VITALS: BP 130/60; TEMP 97.6; O2SAT 98
[2024-09-29 00:37] VITALS: BP 139/74; TEMP 97.6; O2SAT 98
[2024-09-29 04:00] VITALS: BP 137/85; TEMP 96.7; O2SAT 97
[2024-09-29 08:00] VITALS: BP 181/76; TEMP 98.4; O2SAT 99
[2024-09-29 16:00] VITALS: BP 118/65; TEMP 98.1; O2SAT 96
[2024-09-29 20:00] VITALS: BP 114/70; TEMP 97.5; O2SAT 94
[2024-09-30 04:00] VITALS: BP 139/68; TEMP 98.4; O2SAT 100
[2024-09-30 08:00] VITALS: BP 171/73; TEMP 98.2; O2SAT 98
[2024-09-30 16:00] VITALS: BP 112/53; TEMP 98; O2SAT 99
[2024-09-30 20:00] VITALS: BP 117/70; TEMP 98.1; O2SAT 97
[2024-10-01 04:00] VITALS: BP 117/70; TEMP 98.1; O2SAT 97
[2024-10-01 10:14] VITALS: BP 139/68; TEMP 98.4; O2SAT 100
[2024-10-01] MEDS: ALBUTEROL FS 2.5 MG/3 ML VIAL.NEB NEB SCH (12:04)
[2024-10-01 16:02] VITALS: BP 112/53; TEMP 98; O2SAT 99
[2024-10-01 19:51] VITALS: O2SAT 98
[2024-10-01 20:00] VITALS: BP 101/66; TEMP 97.7; O2SAT 98
[2024-10-02 04:22] VITALS: BP 121/78; TEMP 97.3; O2SAT 100
[2024-10-02 08:00] VITALS: BP 100/55; TEMP 97.5; O2SAT 99
[2024-10-02] MEDS ORDERED: ALBUTEROL FS 2.5 MG/0.5 ML VIAL.NEB NEB PRN (13:30)
[2024-10-02 16:00] VITALS: BP 130/70; TEMP 97.3; O2SAT 99
[2024-10-02 18:09] LABS: CALCIUM, SERUM 8.7 mg/dL (8.5-10.1); CREATININE 0.9 mg/dL (0.6-1.3); POTASSIUM 4.6 mmol/L (3.5-5.1)
[2024-10-02 21:02] VITALS: BP 126/58; O2SAT 93
[2024-10-03 04:51] VITALS: BP 131/69; TEMP 97.7; O2SAT 97
[2024-10-03 08:00] VITALS: BP 163/93; TEMP 97.7; O2SAT 99
[2024-10-03 08:05] LABS: CREATININE 0.7 mg/dL (0.6-1.3); POTASSIUM 4.9 mmol/L (3.5-5.1)
[2024-10-03] MEDS: GUAIFENESIN LA 600 MG TABLET.SA PO SCH (12:18)
[2024-10-03 16:00] VITALS: BP 129/57; TEMP 97.7; O2SAT 97; O2SAT 99
[2024-10-03 16:01] LABS: ABG BASE EXCESS 7.9 mmol/L (-2.0-3.0); ABG OXYGEN SATURATION 97.5 % (94.0-98.0); ABG PCO2 50.9 mmHg (35.0-48.0); ABG PH 7.438 (7.350-7.450); ABG PO2 96.6 mmHg (83.0-108.0); ABG TOTAL HEMOGLOBIN 14.4 G/dL (13.5-17.5); COHb 0.4 % (0.5-1.5); MetHb 0.3 % (0.0-1.5); O2Hb 96.8 % (94.0-97.0); SITE, ABG RIGHT BRACHIAL
[2024-10-03] MEDS ORDERED: ALBUTEROL SULFATE 8 GM HFA.AER.AD IH PRN (16:30)
[2024-10-03 20:00] VITALS: BP 103/55; TEMP 97.5; O2SAT 98
[2024-10-03] MEDS: ACETAMINOPHEN 325 MG TABLET PO PRN (21:33)
[2024-10-04 04:00] VITALS: BP 108/68; TEMP 97.7; O2SAT 98
[2024-10-04 08:00] VITALS: BP 125/57; TEMP 97.7; O2SAT 99
[2024-10-04 14:42] LABS: CALCIUM, SERUM 8.6 mg/dL (8.5-10.1); POTASSIUM 3.9 mmol/L (3.5-5.1)
[2024-10-04 16:00] VITALS: BP 97/47; TEMP 98; O2SAT 99
[2024-10-04 20:00] VITALS: BP 113/58; TEMP 97.5; O2SAT 98
[2024-10-04] MEDS: MORPHINE SULFATE INJ 2 MG/ML DISP.SYRIN IV PRN (23:15)
[2024-10-05 04:00] VITALS: BP 112/57; TEMP 97.2; O2SAT 98
[2024-10-05 08:00] VITALS: BP 148/69; TEMP 98.8; O2SAT 99
[2024-10-05] MEDS ORDERED: HYDROCODONE/APAP 5/325MG TABLET PO PRN (12:00)
[2024-10-05] MEDS: PREGABALIN 25 MG CAPSULE PO SCH (13:29)
[2024-10-05 16:00] VITALS: BP 136/69; TEMP 98; O2SAT 98
[2024-10-05 21:04] VITALS: BP 100/57; TEMP 97.7; O2SAT 95
[2024-10-06 04:42] VITALS: BP 123/56; TEMP 97.7; O2SAT 97
[2024-10-06 08:00] VITALS: BP 138/75; TEMP 98.1; O2SAT 95
[2024-10-06 16:00] VITALS: BP 131/62; TEMP 98; O2SAT 94
[2024-10-06] MEDS: PREGABALIN 100 MG CAPSULE PO SCH (17:44)
[2024-10-06 20:00] VITALS: BP 98/53; TEMP 97; O2SAT 92
[2024-10-07 04:00] VITALS: BP 131/67; TEMP 97.5; O2SAT 96
[2024-10-07 08:00] VITALS: BP 119/64; TEMP 97.8; O2SAT 99
[2024-10-07 09:00] VITALS: O2SAT 96
[2024-10-07 16:00] VITALS: BP 93/55; TEMP 97.4; O2SAT 98
[2024-10-07 20:00] VITALS: BP 90/60; TEMP 97.2; O2SAT 99
[2024-10-08 04:00] VITALS: BP 122/56; TEMP 97.1; O2SAT 98
[2024-10-08 08:00] VITALS: BP 108/64; TEMP 98.2; O2SAT 98
[2024-10-08 08:25] LABS: EOSINOPHILS % (AUTO) 0.1 % (0.0-6.0); HEMATOCRIT 38 % (39-51); HEMOGLOBIN 12.8 g/dL (13.5-17.5); LYMPHOCYTES # (AUTO) 1.3 K/uL (0.8-4.8); LYMPHOCYTES % (AUTO) 10.9 % (20.0-44.0); MEAN CORPUSCULAR HEMOGLOBIN 29 PG (26.0-33.0); MEAN CORPUSCULAR HGB CONC 34 g/dl (31.0-36.0); MEAN CORPUSCULAR VOLUME 86 fL (80-96); MONOCYTES # (AUTO) 1.4 K/uL (0.1-1.30); MONOCYTES % (AUTO) 11.7 % (2.0-12.0); NEUTROPHILS # (AUTO) 9.1 K/uL (1.8-8.9); NEUTROPHILS % (AUTO) 77.3 % (43.0-81.0); PLATELET COUNT (AUTO) 293 K/uL (150-450); RED BLOOD CELL COUNT(AUTO) 4.39 MIL/uL (4.5-6.0); RED CELL DISTRIBUTION WIDTH 14.3 % (11.5-15.0); WHITE BLOOD COUNT (AUTO) 11.8 K/uL (4.3-11.0)
[2024-10-08 09:00] LABS: ALBUMIN 3.1 g/dL (3.4-5.0); BILIRUBIN,TOTAL 0.4 mg/dL (0.2-1.0); CALCIUM, SERUM 9.3 mg/dL (8.5-10.1); CREATININE 0.8 mg/dL (0.6-1.3); PHOSPHORUS 3.1 mg/dL (2.5-4.9); POTASSIUM 4.9 mmol/L (3.5-5.1); TOTAL PROTEIN, SERUM 6.2 g/dL (6.4-8.2)
[2024-10-08] MEDS: VALSARTAN 80 MG TABLET PO SCH (09:00)
[2024-10-08] MEDS: predniSONE 5 MG TABLET PO SCH (09:19)
[2024-10-08 16:05] VITALS: BP 110/56; TEMP 98.4; O2SAT 98
[2024-10-08 17:25] VITALS: O2SAT 98
[2024-10-08 17:36] VITALS: O2SAT 99
[2024-10-08 20:00] VITALS: BP 96/72; TEMP 98.1; O2SAT 99
[2024-10-09] VITALS (10 sets, daily range): BP systolic 106–113; BP diastolic 58–65; TEMP 97.5–97.9; O2SAT 94–100
[2024-10-09] MEDS: ALBUTEROL FS 2.5 MG/3 ML VIAL.NEB NEB SCH (14:48)
== END 2024-10-09 18:05 | DRG 139 ==
LOC: ER 16:11 → TELE1 20:20 → MEDSG1 09-26 10:00 → UNDODISIN 09-27 18:39 → MEDSG1 09-27 21:28 → TELE1 09-27 23:22 → MEDSG1 09-28 10:20
PROVIDERS: ADMIT Internal Medicine; ATTEND Nurse Practitioner Family
DX: J15.9 Unspecified bacterial pneumonia (principal); J96.21 Acute and chronic respiratory failure with hypoxia; N17.9 Acute kidney failure, unspecified; U07.1 COVID-19; E87.20 Acidosis, unspecified; L89.616 Pressure-induced deep tissue damage of right heel; J44.1 Chronic obstructive pulmonary disease with (acute) exacerbation; I48.91 Unspecified atrial fibrillation; G25.0 Essential tremor; E66.01 Morbid (severe) obesity due to excess calories; J96.22 Acute and chronic respiratory failure with hypercapnia; M81.0 Age-related osteoporosis without current pathological fracture; I10 Essential (primary) hypertension; K21.9 Gastro-esophageal reflux disease without esophagitis; Z91.81 History of falling; R26.9 Unspecified abnormalities of gait and mobility; Z87.81 Personal history of (healed) traumatic fracture; Z79.82 Long term (current) use of aspirin; Z79.51 Long term (current) use of inhaled steroids; Z79.899 Other long term (current) drug therapy; D64.9 Anemia, unspecified; Z87.891 Personal history of nicotine dependence; S90.822A Blister (nonthermal), left foot, initial encounter; X58.XXXA Exposure to other specified factors, initial encounter; Y92.9 Unspecified place or not applicable; R91.1 Solitary pulmonary nodule; R79.89 Other specified abnormal findings of blood chemistry; E04.1 Nontoxic single thyroid nodule
CPT/HCPCS: 36415; 36600; 71045-TC; 80048-TC; 80053-TC; 80076-TC; 81001; 82550-TC; 82803-TC; 83605-TC; 83735-TC; 83880; 83970; 84100-TC; 84155; 84165; 84484-TC; 85025-TC; 85378-TC; 85730-TC; 86140-TC; 87040-TC; 87081-TC; 87086-TC; 94760-TC; 94762-TC; 94799-TC; 97110-TC; 97112-TC; 97116-TC; 97530-TC; A4223; G0378; J0692; J1100; J1650; J2270; J2919; J3370; J7030; J7050; J7060; J7512; Q9967

== ENCOUNTER 2024-10-18 21:17 | Inpatient (IN) | payer MEDICARE, OTHER ==
[~2024-10-18] VITALS: Ht 165.1 cm; Wt 55.3 kg
[~2024-10-18 21:17] MED LIST changes: -ALBU18HF2 IH; -ALBU2.5V38 IH; +ASPI-1169 PO; -ASPI-1420 PO; +AZIT250T13 PO; -BREZTRI IH; -FLUT1BLS6 IH; +IPRA3AMP23 NEB; -LEVO500T90 PO; -METH4TAB3 PO; +MULT-213 PO; +NA P133E RC; +PANT40TA49 PO; +PRED50TA PO; +VALS160T2 PO
[2024-10-18] MEDS: methylPREDNISolone SOD SUCC 125 MG/2ML VIAL IV ONE (21:30)
[2024-10-18] MEDS: IV NS 0.9% 1,000 ML IV ONE ×2 (21:30→23:00)
[2024-10-18] MEDS ORDERED: methylPREDNISolone SOD SUCC 125 MG/2ML VIAL ONE (21:31)
[2024-10-18] MEDS ORDERED: ALBUTEROL FS 2.5 MG/3 ML VIAL.NEB ONE (21:39)
[2024-10-18 21:41] LABS: BASOPHILS % (AUTO) 0.2 % (0.0-2.0); EOSINOPHILS % (AUTO) 0.2 % (0.0-6.0); HEMATOCRIT 36 % (39-51); HEMOGLOBIN 11.8 g/dL (13.5-17.5); LYMPHOCYTES # (AUTO) 1.2 K/uL (0.8-4.8); LYMPHOCYTES % (AUTO) 8.6 % (20.0-44.0); MEAN CORPUSCULAR HEMOGLOBIN 29 PG (26.0-33.0); MEAN CORPUSCULAR HGB CONC 33 g/dl (31.0-36.0); MEAN CORPUSCULAR VOLUME 87 fL (80-96); MONOCYTES % (AUTO) 7.6 % (2.0-12.0); NEUTROPHILS # (AUTO) 11.4 K/uL (1.8-8.9); NEUTROPHILS % (AUTO) 83.4 % (43.0-81.0); PLATELET COUNT (AUTO) 217 K/uL (150-450); RED BLOOD CELL COUNT(AUTO) 4.07 MIL/uL (4.5-6.0); RED CELL DISTRIBUTION WIDTH 14.8 % (11.5-15.0); WHITE BLOOD COUNT (AUTO) 13.6 K/uL (4.3-11.0)
[2024-10-18] MEDS: ALBUTEROL FS 2.5 MG/3 ML VIAL.NEB CONTNEB ONE (21:45)
[2024-10-18 21:51] LABS: APPEARANCE,URINE CLEAR (CLEAR); BILIRUBIN,URINE 2+ (NEGATIVE); BLOOD, URINE NEGATIVE Ery/uL (NEGATIVE); COLOR,URINE YELLOW (YELLOW); KETONES,URINE NEGATIVE (NEGATIVE); LEUKOCYTE ESTERASE ,URINE NEGATIVE (NEGATIVE); NITRITE, URINE NEGATIVE (NEGATIVE); PROTEIN,URINE 1+ mg/dl (NEGATIVE); UGLUCOSE NEGATIVE (NEGATIVE)
[2024-10-18 21:53] LABS: ADD URINE CULTURE NO; BACTERIA,URINE None seen /HPF (None Seen); SQUAMOUS EPITHELIAL CELL,UR None Seen /HPF (None Seen); WBC,URINE 0-2 /HPF (0-3)
[2024-10-18 21:55] LABS: CALCIUM, SERUM 9.2 mg/dL (8.5-10.1); CREATININE 1.1 mg/dL (0.6-1.3); POTASSIUM 4.4 mmol/L (3.5-5.1)
[2024-10-18 22:08] LABS: ALBUMIN 2.7 g/dL (3.4-5.0); BILIRUBIN,TOTAL 0.6 mg/dL (0.2-1.0); TOTAL PROTEIN, SERUM 6.8 g/dL (6.4-8.2)
[2024-10-19] VITALS (29 sets, daily range): BP systolic 93–134; BP diastolic 53–90; TEMP 96.5–98.6; O2SAT 92–100
[2024-10-19 00:01] LABS: ABG BASE EXCESS 3.7 mmol/L (-2.0-3.0); ABG OXYGEN SATURATION 99.2 % (94.0-98.0); ABG PCO2 50.7 mmHg (35.0-48.0); ABG PH 7.384 (7.350-7.450); ABG PO2 304.8 mmHg (83.0-108.0); ABG TOTAL HEMOGLOBIN 11.3 G/dL (13.5-17.5); COHb 0.3 % (0.5-1.5); MetHb 0.3 % (0.0-1.5); O2Hb 98.6 % (94.0-97.0); SITE, ABG LEFT RADIAL
[2024-10-19] MEDS ORDERED: ENOXAPARIN SODIUM 40 MG/0.4 ML DISP.SYRIN SQ SCH (01:30)
[2024-10-19] MEDS ORDERED: MAG HYDROX/AL HYDROX/SIMETH 30 ML UDC PO PRN (01:30)
[2024-10-19] MEDS ORDERED: FLUTICASONE/SALMETEROL 1 DISK IH SCH (01:30)
[2024-10-19] MEDS ORDERED: ACETAMINOPHEN 325 MG TABLET PO PRN (01:30)
[2024-10-19] MEDS ORDERED: TRAMADOL HCL 50 MG TABLET PO PRN (01:30)
[2024-10-19] MEDS ORDERED: MAGNESIUM HYDROXIDE 30 ML UDC PO PRN (01:30)
[2024-10-19] MEDS ORDERED: ONDANSETRON HCL/PF 4 MG/2 ML VIAL IVP PRN (01:30)
[2024-10-19] MEDS: methylPREDNISolone SOD SUCC 125 MG/2ML VIAL IV SCH (05:34)
[2024-10-19] MEDS ORDERED: ALBUTEROL HALF STRENGTH 1.25 MG/3 ML VIAL.NEB NEB PRN (06:30)
[2024-10-19] MEDS ORDERED: IPRATROPIUM NEB FS 0.5 MG/2.5 ML AMPUL.NEB NEB PRN (06:30)
[2024-10-19 07:22] LABS: HEMATOCRIT 34 % (39-51); HEMOGLOBIN 11.4 g/dL (13.5-17.5); LYMPHOCYTES # (AUTO) 0.8 K/uL (0.8-4.8); LYMPHOCYTES % (AUTO) 7.6 % (20.0-44.0); MEAN CORPUSCULAR HEMOGLOBIN 30 PG (26.0-33.0); MEAN CORPUSCULAR HGB CONC 34 g/dl (31.0-36.0); MEAN CORPUSCULAR VOLUME 88 fL (80-96); MONOCYTES # (AUTO) 0.3 K/uL (0.1-1.30); MONOCYTES % (AUTO) 3.2 % (2.0-12.0); NEUTROPHILS % (AUTO) 89.2 % (43.0-81.0); PLATELET COUNT (AUTO) 173 K/uL (150-450); RED BLOOD CELL COUNT(AUTO) 3.82 MIL/uL (4.5-6.0); WHITE BLOOD COUNT (AUTO) 10.1 K/uL (4.3-11.0)
[2024-10-19] MEDS: ALBUTEROL HALF STRENGTH 1.25 MG/3 ML VIAL.NEB NEB SCH (07:24)
[2024-10-19] MEDS: IPRATROPIUM NEB FS 0.5 MG/2.5 ML AMPUL.NEB NEB SCH (07:24)
[2024-10-19 07:45] LABS: CALCIUM, SERUM 9.4 mg/dL (8.5-10.1); CREATININE 0.9 mg/dL (0.6-1.3); MAGNESIUM 2.2 mg/dL (1.8-2.4); PHOSPHORUS 3.9 mg/dL (2.5-4.9); POTASSIUM 4.5 mmol/L (3.5-5.1)
[2024-10-19] MEDS: MULTIVIT W/MINERALS 1 TAB TABLET PO SCH (08:20)
[2024-10-19] MEDS: AMLODIPINE BESYLATE 5 MG TABLET PO SCH (08:20)
[2024-10-19] MEDS: ASPIRIN 81 MG TAB.CHEW PO SCH (08:20)
[2024-10-19] MEDS: CHOLECALCIFEROL 1,000 UNIT TABLET (VIT D3) PO SCH (08:20)
[2024-10-19] MEDS: ASCORBIC ACID 500 MG TABLET PO SCH (08:20)
[2024-10-19] MEDS: DOCUSATE SODIUM 100 MG CAPSULE PO SCH (08:21)
[2024-10-19] MEDS: POLYETHYLENE GLYCOL 3350 17 GM POWD.PACK PO SCH (08:21)
[2024-10-19] MEDS: VALSARTAN 80 MG TABLET PO SCH (08:21)
[2024-10-19] MEDS: ENOXAPARIN SODIUM 40 MG/0.4 ML DISP.SYRIN SQ SCH (08:22)
[2024-10-19] MEDS: PANTOPRAZOLE 40 MG TABLET.DR PO SCH (08:22)
[2024-10-19] MEDS: FLUTICASONE/VILANTEROL 1 EACH BLST.W.DEV IH SCH (08:29)
[2024-10-19] MEDS: DAKINS QUARTER STRENGTH (0.125%) 480 ML BOTTLE TOP SCH (08:30)
[2024-10-19] MEDS ORDERED: HYDR-4303 PO (09:33)
[2024-10-19] MEDS ORDERED: BISA10SU11 RC (09:33)
[2024-10-19] MEDS ORDERED: PROP40TA7 PO (09:33)
[2024-10-19] MEDS ORDERED: FLUT1BLS IH (09:33)
[2024-10-19] MEDS ORDERED: ZINC50TA69 PO (09:33)
[2024-10-19] MEDS ORDERED: VALS80TA31 PO (09:33)
[2024-10-19] MEDS ORDERED: AMIN30LI66 PO (09:33)
[2024-10-19] MEDS ORDERED: PRED10TA PO (09:33)
[2024-10-19] MEDS ORDERED: ENOX40DI SQ (09:33)
[2024-10-19] MEDS ORDERED: ALBU18HF2 IH (09:33)
[2024-10-19] MEDS ORDERED: GUAI100S9 PO (09:33)
[2024-10-19] MEDS ORDERED: PREG100C PO (09:33)
[2024-10-19] MEDS: IV 1/2NS 1000 ML 1,000 ML IV ONE (11:12)
[2024-10-19] MEDS: CEFEPIME 2 GM in IV D5W 100 ML IV SCH (16:30)
[2024-10-19 17:15] LABS: CREATININE, URINE 140.8 MG/DL (30.0-125.0); URINE TOTAL PROTEIN 119.2 mg/dL (0-11.9)
[2024-10-20] VITALS (33 sets, daily range): BP systolic 90–130; BP diastolic 53–92; TEMP 97.7–98; O2SAT 95–100
[2024-10-20 04:38] LABS: HEMATOCRIT 33 % (39-51); HEMOGLOBIN 11.2 g/dL (13.5-17.5); LYMPHOCYTES # (AUTO) 0.5 K/uL (0.8-4.8); MEAN CORPUSCULAR HEMOGLOBIN 29 PG (26.0-33.0); MEAN CORPUSCULAR HGB CONC 34 g/dl (31.0-36.0); MEAN CORPUSCULAR VOLUME 87 fL (80-96); MONOCYTES # (AUTO) 0.3 K/uL (0.1-1.30); MONOCYTES % (AUTO) 4.4 % (2.0-12.0); NEUTROPHILS % (AUTO) 89.6 % (43.0-81.0); PLATELET COUNT (AUTO) 187 K/uL (150-450); RED CELL DISTRIBUTION WIDTH 14.8 % (11.5-15.0); WHITE BLOOD COUNT (AUTO) 7.8 K/uL (4.3-11.0)
[2024-10-20 04:50] LABS: CALCIUM, SERUM 8.9 mg/dL (8.5-10.1); CREATININE 0.8 mg/dL (0.6-1.3); MAGNESIUM 2.1 mg/dL (1.8-2.4); PHOSPHORUS 2.7 mg/dL (2.5-4.9)
[2024-10-20 10:41] LABS: ABG BASE EXCESS 1.5 mmol/L (-2.0-3.0); ABG OXYGEN SATURATION 96.5 % (94.0-98.0); ABG PCO2 38.5 mmHg (35.0-48.0); ABG PH 7.441 (7.350-7.450); ABG TOTAL HEMOGLOBIN 12.5 G/dL (13.5-17.5); COHb 0.3 % (0.5-1.5); MetHb 0.3 % (0.0-1.5); O2Hb 95.9 % (94.0-97.0); SITE, ABG RIGHT BRACHIAL
[2024-10-20] MEDS: ARGININE/GLUTAMINE/CALCIUM BMB 1 EACH POWD.PACK PO SCH (18:11)
[2024-10-20] MEDS: GLUCERNA SHAKE 237 ML CAN PO SCH (18:12)
[2024-10-21] VITALS (23 sets, daily range): BP systolic 102–147; BP diastolic 51–102; TEMP 96.4–98; O2SAT 96–100
[2024-10-21] MEDS ORDERED: IV NS 0.9% 1,000 ML IV PRN (09:30)
[2024-10-21 12:29] LABS: ALBUMIN 2.3 g/dL (3.4-5.0); BILIRUBIN,TOTAL 0.4 mg/dL (0.2-1.0); CALCIUM, SERUM 9.4 mg/dL (8.5-10.1); CREATININE 0.6 mg/dL (0.6-1.3); HEMATOCRIT 33 % (39-51); HEMOGLOBIN 11.3 g/dL (13.5-17.5); LYMPHOCYTES # (AUTO) 0.3 K/uL (0.8-4.8); LYMPHOCYTES % (AUTO) 4.7 % (20.0-44.0); MAGNESIUM 2.3 mg/dL (1.8-2.4); MEAN CORPUSCULAR HEMOGLOBIN 30 PG (26.0-33.0); MEAN CORPUSCULAR HGB CONC 34 g/dl (31.0-36.0); MEAN CORPUSCULAR VOLUME 87 fL (80-96); MONOCYTES # (AUTO) 0.4 K/uL (0.1-1.30); MONOCYTES % (AUTO) 5.4 % (2.0-12.0); NEUTROPHILS # (AUTO) 6.5 K/uL (1.8-8.9); NEUTROPHILS % (AUTO) 89.9 % (43.0-81.0); PHOSPHORUS 2.6 mg/dL (2.5-4.9); PLATELET COUNT (AUTO) 193 K/uL (150-450); POTASSIUM 4.1 mmol/L (3.5-5.1); RED BLOOD CELL COUNT(AUTO) 3.82 MIL/uL (4.5-6.0); TOTAL PROTEIN, SERUM 6.2 g/dL (6.4-8.2); WHITE BLOOD COUNT (AUTO) 7.2 K/uL (4.3-11.0)
[2024-10-22] VITALS (13 sets, daily range): BP systolic 109–156; BP diastolic 43–80; TEMP 97.5–98.4; O2SAT 94–100
[2024-10-22 09:44] LABS: BASOPHILS % (AUTO) 0.1 % (0.0-2.0); HEMATOCRIT 35 % (39-51); HEMOGLOBIN 11.9 g/dL (13.5-17.5); LYMPHOCYTES # (AUTO) 0.4 K/uL (0.8-4.8); MEAN CORPUSCULAR HEMOGLOBIN 30 PG (26.0-33.0); MEAN CORPUSCULAR HGB CONC 34 g/dl (31.0-36.0); MEAN CORPUSCULAR VOLUME 88 fL (80-96); MONOCYTES # (AUTO) 0.3 K/uL (0.1-1.30); MONOCYTES % (AUTO) 4.9 % (2.0-12.0); NEUTROPHILS # (AUTO) 5.8 K/uL (1.8-8.9); PLATELET COUNT (AUTO) 182 K/uL (150-450); RED BLOOD CELL COUNT(AUTO) 3.98 MIL/uL (4.5-6.0); RED CELL DISTRIBUTION WIDTH 15.2 % (11.5-15.0); WHITE BLOOD COUNT (AUTO) 6.5 K/uL (4.3-11.0)
[2024-10-22 10:07] LABS: ALBUMIN 2.4 g/dL (3.4-5.0); BILIRUBIN,TOTAL 0.5 mg/dL (0.2-1.0); CALCIUM, SERUM 9.5 mg/dL (8.5-10.1); CREATININE 0.6 mg/dL (0.6-1.3); MAGNESIUM 2.6 mg/dL (1.8-2.4); TOTAL PROTEIN, SERUM 6.5 g/dL (6.4-8.2)
[2024-10-22] MEDS: LIDOCAINE 2%-EPI 1:100,000 30 ML VIAL TP ONE (15:49)
[2024-10-23] VITALS (14 sets, daily range): BP systolic 104–155; BP diastolic 68–77; TEMP 97.8–98.4; O2SAT 94–100
[2024-10-24] VITALS (13 sets, daily range): BP systolic 115–150; BP diastolic 48–83; TEMP 97.5–98.2; O2SAT 96–100
[2024-10-25] VITALS (15 sets, daily range): BP systolic 100–138; BP diastolic 68–83; TEMP 97.3–98.1; O2SAT 92–100
[2024-10-25 07:48] LABS: CALCIUM, SERUM 9.7 mg/dL (8.5-10.1); CREATININE 0.5 mg/dL (0.6-1.3); POTASSIUM 4.2 mmol/L (3.5-5.1)
[2024-10-25 08:04] LABS: BASOPHILS % (AUTO) 0.1 % (0.0-2.0); EOSINOPHILS % (AUTO) 0.1 % (0.0-6.0); HEMATOCRIT 40 % (39-51); HEMOGLOBIN 12.5 g/dL (13.5-17.5); LYMPHOCYTES # (AUTO) 0.5 K/uL (0.8-4.8); LYMPHOCYTES % (AUTO) 4.2 % (20.0-44.0); MEAN CORPUSCULAR HEMOGLOBIN 29 PG (26.0-33.0); MEAN CORPUSCULAR HGB CONC 31 g/dl (31.0-36.0); MEAN CORPUSCULAR VOLUME 93 fL (80-96); MONOCYTES # (AUTO) 0.7 K/uL (0.1-1.30); MONOCYTES % (AUTO) 6.2 % (2.0-12.0); NEUTROPHILS # (AUTO) 9.6 K/uL (1.8-8.9); NEUTROPHILS % (AUTO) 89.4 % (43.0-81.0); PLATELET COUNT (AUTO) 210 K/uL (150-450); RED BLOOD CELL COUNT(AUTO) 4.28 MIL/uL (4.5-6.0); WHITE BLOOD COUNT (AUTO) 10.8 K/uL (4.3-11.0)
[2024-10-25] MEDS: methylPREDNISolone SOD SUCC 125 MG/2ML VIAL IV SCH (16:52)
[2024-10-26] VITALS (9 sets, daily range): BP systolic 138–141; BP diastolic 68–73; TEMP 97.6–98.4; O2SAT 93–100
[2024-10-26] MEDS ORDERED: NUTR1PAC14 PO (11:59)
[2024-10-26] MEDS ORDERED: TRAM50TA2 PO (11:59)
[2024-10-26] MEDS ORDERED: SODI473S8 TOP (11:59)
[2024-10-26] MEDS ORDERED: ACET325T53 PO (11:59)
[2024-10-26] MEDS ORDERED: AMLO-212 PO (11:59)
[2024-10-26] MEDS ORDERED: IPRA0.2S9 NEB ×2 (11:59)
[2024-10-26] MEDS ORDERED: CEFE2PIG2 IV (11:59)
[2024-10-26] MEDS ORDERED: PRED20TA PO (11:59)
[2024-10-26] MEDS ORDERED: ASPI-1169 PO (11:59)
[2024-10-26] MEDS ORDERED: POLY17PO29 PO (11:59)
[2024-10-26] MEDS ORDERED: PANT40TA49 PO (11:59)
[2024-10-26] MEDS ORDERED: VALS80TA31 PO (11:59)
[2024-10-26] MEDS ORDERED: BUDE0.25 NEB (11:59)
[2024-10-26] MEDS ORDERED: ALBU1.25 NEB ×2 (11:59)
[2024-10-26] MEDS ORDERED: DOCU100C36 PO (11:59)
[2024-10-26] MEDS ORDERED: ASCO500T21 PO (11:59)
[2024-10-26] MEDS ORDERED: Multivit W/Minerals PO (11:59)
[2024-10-26] MEDS ORDERED: ENOX40DI SQ (11:59)
[2024-10-26] MEDS ORDERED: NUT.237L45 PO (11:59)
[2024-10-26] MEDS ORDERED: CHOL100040 PO (11:59)
[2024-10-26] MEDS ORDERED: LIDOCAINE 2%-EPI 1:100,000 30 ML VIAL TP ONE (15:30)
== END 2024-10-26 17:46 | DRG 166 ==
LOC: ER 21:24 → ICU 10-19 01:40 → TELE-TD 10-21 12:26 → TELE1 10-22 08:29 → MEDSG1 10-24 10:20
PROVIDERS: ADMIT Nurse Practitioner Acute Care; ATTEND Nurse Practitioner Acute Care
PROC: 5A09357 Assistance with Respiratory Ventilation, Less than 24 Consecutive Hours, Continuous Positive Airway Pressure (ICD-10-PCS; principal; 2024-10-19)
PROC: 0JB70ZZ Excision of Back Subcutaneous Tissue and Fascia, Open Approach (ICD-10-PCS; 2024-10-22)
DX: J44.1 Chronic obstructive pulmonary disease with (acute) exacerbation (principal); J15.9 Unspecified bacterial pneumonia; J96.21 Acute and chronic respiratory failure with hypoxia; J96.22 Acute and chronic respiratory failure with hypercapnia; L89.153 Pressure ulcer of sacral region, stage 3; E44.0 Moderate protein-calorie malnutrition; N17.9 Acute kidney failure, unspecified; E87.0 Hyperosmolality and hypernatremia; S42.212K Unspecified displaced fracture of surgical neck of left humerus, subsequent encounter for fracture with nonunion; J43.9 Emphysema, unspecified; L89.626 Pressure-induced deep tissue damage of left heel; L89.616 Pressure-induced deep tissue damage of right heel; Z86.16 Personal history of COVID-19; J44.0 Chronic obstructive pulmonary disease with (acute) lower respiratory infection; E86.0 Dehydration; K21.9 Gastro-esophageal reflux disease without esophagitis; Z87.891 Personal history of nicotine dependence; R91.1 Solitary pulmonary nodule; W06.XXXD Fall from bed, subsequent encounter; M89.8X9 Other specified disorders of bone, unspecified site; M81.0 Age-related osteoporosis without current pathological fracture; I10 Essential (primary) hypertension; I48.91 Unspecified atrial fibrillation; E88.09 Other disorders of plasma-protein metabolism, not elsewhere classified; D64.9 Anemia, unspecified; Z68.20 Body mass index [BMI] 20.0-20.9, adult; Z79.82 Long term (current) use of aspirin; Z79.899 Other long term (current) drug therapy
CPT/HCPCS: 36415; 36600; 70450-TC; 71045-TC; 71250-TC; 73030-TC; 73200-TC; 80048-TC; 80053-TC; 81001; 82570-TC; 82803-TC; 83605-TC; 83735-TC; 83880; 84100-TC; 84300-TC; 84484-TC; 85025-TC; 87040-TC; 87081-TC; 94660; 94760-TC; 94761-TC; 94762-TC; 94799-TC; A4223; A6403; G0378; J0692; J1650; J2919; J3490; J7050; J7060